=== PATIENT | male | born 1955 | race Caucasian/White ===

== ENCOUNTER → 2021-12-26 | Outpatient (CLI) | payer MEDICARE, BC ==
[2021-12-26 18:26] LABS: % Iron Saturation 25.32 (15.00-50.00); African American GFR (CKD) 102.1 (60.0-200.0); Albumin 4.1 g/dL (3.8-4.9); Albumin/Globulin Ratio 1.05 (1.60-3.17); Anion Gap 9.8 mmol/L (10.00-18.00); Calcium 11.6 mg/dL (8.7-10.3); Carbon Dioxide 24.2 mmol/L (20.0-27.5); Globulin 3.9 g/dL (1.6-3.3); Non-African American GFR(CKD) 88.1 (60.0-200.0); Potassium 4.2 mmol/L (3.5-5.5); Total Bilirubin 0.8 mg/dL (0.30-1.20)
[2021-12-26 18:29] LABS: Alpha Fetoprotein, Tumor Mkr 18.8 ng/mL (0.00-7.90); Ceruloplasmin 25.3 mg/dL (20.0-60.0)
[2021-12-26 19:37] LABS: Basophils # (A) 0.06 X 10*3/uL (0.00-0.10); Basophils % (A) 1.3 %; Eosinophils % (A) 4.4 %; HCT 42.1 % (39.6-50.0); HGB 14.7 g/dL (13.0-17.0); Immature Grans, Automated 0.2 %; Immature Platelet Fraction 20.3 % (1.1-6.1); Lymphocytes # (A) 0.84 X 10*3/uL (0.90-5.00); Lymphocytes % (A) 18.6 %; MCH 34.8 pg (27.0-32.0); MCHC 34.9 g/dL (32.0-37.0); MCV 99.8 fL (80.0-97.0); Mean Platelet Volume 13.6 fL (9.5-12.2); Monocytes # (A) 0.61 X 10*3/uL (0.20-1.00); Monocytes % (A) 13.5 %; NRBC Per 100 WBC 0 /100 WBCS (0.0-0.0); Neutrophils # (A) 2.79 X 10*3/uL (1.80-7.70); Platelet Count 83 X 10*3/uL (140-440); RBC 4.22 X 10*6/uL (4.40-5.60); RBC Morphology NORMAL; RDW 12.7 % (11.5-14.5); WBC 4.51 X 10*3/uL (4.50-10.00)
== END | disposition home or self-care (01) ==
LOC: LABWHC1 13:10
PROVIDERS: ATTEND Internal Medicine Gastroenterology
DX: R74.01 Elevation of levels of liver transaminase levels (principal); Z86.19 Personal history of other infectious and parasitic diseases
CPT/HCPCS: 36415; 80053; 82103; 82105; 82390; 82728; 83540; 83550; 85025; 87522

== ENCOUNTER → 2022-01-24 | Outpatient (CLI) | payer MEDICARE, BC ==
--- NOTE | 2022-01-24 16:00 | MR ---
EXAMINATION TYPE: MR liver wo/w con DATE OF EXAM: 01/24/2022 1:05 PM INDICATION: Patient age:Male; 66 years old; Reason for study: R77.2 ABNORMALITY OF ALPHAFETOPROTEIN; PHH. COMPARISON: None available. TECHNIQUE: Multiplanar multi-sequence imaging of the abdomen was obtained before and after the uneve ntful administration of 9 mL of Gadavist intravenously. FINDINGS: LOWER CHEST: No gross irregularity. ABDOMEN Liver: Noncirrhotic morphology. No intrahepatic biliary duct dilatation. No suspicious focal lesions or abnormal enhancement identified.. Diffuse lower signal on the in phase images. Gallbladder and Bile ducts: Unremarkable. Pancreas: Unremarkable. Spleen: Unremarkable. Adrenal glands: Unremarkable. Kidneys: Unremarkable. Stomach and Bowel: Unremarkable as visualized. Peritoneum: No evidence of pneumoperitoneum, free fluid, or adenopathy. Vasculature: Unremarkable. No aortic aneurysm. Abdominal wall: Unremarkable. Musculoskeletal: The osseous structures appear intact. Scoliotic curvature with multilevel degenerati ve changes. IMPRESSION: 1. Noncirrhotic hepatic morphology without focal hepatic lesion. No abnormal contrast enhancement. 2. Mild hepatic iron deposition.
== END | disposition home or self-care (01) ==
LOC: RADMRIMAIN 12:10
PROVIDERS: ATTEND Internal Medicine Gastroenterology
DX: K76.9 Liver disease, unspecified (principal); R77.2 Abnormality of alphafetoprotein
CPT/HCPCS: 74183; A9585

== ENCOUNTER → 2022-06-02 | Outpatient (CLI) | payer MEDICARE, BC ==
[2022-06-02 21:11] LABS: African American GFR (CKD) 89.2 (60.0-200.0); Albumin 4.3 g/dL (3.8-4.9); Albumin/Globulin Ratio 1.19 (1.60-3.17); Anion Gap 8.3 mmol/L (10.00-18.00); BUN/Creat Ratio 12.2 Ratio (12.00-20.00); Basophils # (A) 0.05 X 10*3/uL (0.00-0.10); Blood Urea Nitrogen 12.2 mg/dL (9.0-27.0); Calcium 11.7 mg/dL (8.7-10.3); Carbon Dioxide 25.7 mmol/L (20.0-27.5); Eosinophils # (A) 0.18 X 10*3/uL (0.04-0.35); Eosinophils % (A) 3.7 %; Globulin 3.6 g/dL (1.6-3.3); HCT 42.5 % (39.6-50.0); HGB 14.8 g/dL (13.0-17.0); Immature Grans, Automated 0.2 %; Lymphocytes % (A) 18.6 %; MCH 33.8 pg (27.0-32.0); MCHC 34.8 g/dL (32.0-37.0); Mean Platelet Volume 13.5 fL (9.5-12.2); Monocytes # (A) 0.54 X 10*3/uL (0.20-1.00); Monocytes % (A) 11.1 %; NRBC Per 100 WBC 0 /100 WBCS (0.0-0.0); Neutrophils # (A) 3.17 X 10*3/uL (1.80-7.70); Neutrophils % (A) 65.4 %; Platelet Count 92 X 10*3/uL (140-440); Potassium 4.4 mmol/L (3.5-5.5); RBC 4.38 X 10*6/uL (4.40-5.60); RBC Morphology NORMAL; RDW 13.2 % (11.5-14.5); Total Bilirubin 0.6 mg/dL (0.30-1.20); Total Protein 7.9 g/dL (6.2-8.2); WBC 4.85 X 10*3/uL (4.50-10.00)
== END | disposition home or self-care (01) ==
LOC: LABWHC1 11:40
PROVIDERS: ATTEND Internal Medicine Gastroenterology
DX: B18.2 Chronic viral hepatitis C (principal)
CPT/HCPCS: 36415; 80053; 85025; 87522

== ENCOUNTER → 2022-11-23 | Outpatient (CLI) | payer BC, MEDICARE ==
--- NOTE | 2022-11-23 16:45 | US ---
EXAMINATION TYPE: US liver DATE OF EXAM: 11/23/2022 COMPARISON: Correlation MRI 01/24/2022 CLINICAL INDICATION: Male, 67 years old with history of B18.2 CHRONIC VIRAL HEPATITIS C; Abnormal lab s. TECHNIQUE: Multiple sonographic images of the right upper quadrant are obtained. FINDINGS: EXAM MEASUREMENTS: Liver Length: 17.9 cm Gallbladder Wall: 0.1 cm CBD: 0.6 cm Right Kidney: 11.6 x 4.7 x 5.2 cm Pancreas: Tail obscured by overlying bowel gas. Visualized portions within normal limits. Liver: Borderline enlarged. No focal lesion identified. Gallbladder: Mildly distended. However, there is no wall thickening or stones visualized. Evidence for sonographic Flor's sign: neg CBD: Borderline caliber Right Kidney: No hydronephrosis or masses seen IMPRESSION: 1. Borderline hepatomegaly at 17.9 cm. No sonographic evidence for hepatoma. 2. Mildly hydropic gallbladder but without any stones, wall thickening, or signs of inflammation. 3. Bile duct borderline in caliber at 6 mm, acceptable given patient's age.
== END | disposition home or self-care (01) ==
LOC: RADUSWWP 09:48
PROVIDERS: ATTEND Internal Medicine Gastroenterology
DX: B18.2 Chronic viral hepatitis C (principal); R16.0 Hepatomegaly, not elsewhere classified; K82.8 Other specified diseases of gallbladder
CPT/HCPCS: 76705

== ENCOUNTER → 2022-11-23 | Outpatient (CLI) | payer MEDICARE ==
[2022-11-23 16:52] LABS: ALT 39 U/L (10-49); AST 38 U/L (14-35); Albumin 4.4 d/dL (3.8-4.9); Albumin/Globulin Ratio 1.29 Ratio (1.60-3.17); Alkaline Phosphatase 70 U/L (41-126); Blood Urea Nitrogen 13.4 mg/dL (9.0-27.0); Calcium 11.9 mg/dL (8.7-10.3); Carbon Dioxide 24.5 mmol/L (21.6-31.8); Chloride 106 mmol/L (96-109); Globulin 3.4 d/dL (1.6-3.3); Glucose 117 mg/dL (70-110); Potassium 4.5 mmol/L (3.5-5.5); Sodium 139 mmol/L (135-145); Total Bilirubin 0.9 mg/dL (0.3-1.2); Total Protein 7.8 d/dL (6.2-8.2)
[2022-11-23 17:07] LABS: Basophils # (A) 0.05 X 10*3/uL (0.00-0.10); Basophils % (A) 1.1 %; Eosinophils # (A) 0.27 X 10*3/uL (0.04-0.35); Eosinophils % (A) 6.2 %; HCT 45.1 % (39.6-50.0); HGB 15.4 d/dL (13.0-17.0); Lymphocytes # (A) 0.72 X 10*3/uL (0.90-5.00); Lymphocytes % (A) 16.4 %; MCHC 34.1 d/dL (32.0-37.0); MCV 96.6 FL (80.0-97.0); Monocytes # (A) 0.55 X 10*3/uL (0.20-1.00); Monocytes % (A) 12.6 %; NRBC Per 100 WBC 0 X 10*3/uL (0.00-0.01); Neutrophils # (A) 2.78 X 10*3/uL (1.80-7.70); Neutrophils % (A) 63.5 %; Platelet Count 106 X 10*3/uL (140-440); RBC 4.67 X 10*6/uL (4.40-5.60); RDW 12.7 % (11.5-14.5); WBC 4.38 X 10*3/uL (4.50-10.00)
== END | disposition home or self-care (01) ==
LOC: LABWHC1 09:52
PROVIDERS: ATTEND Internal Medicine Gastroenterology
DX: B18.2 Chronic viral hepatitis C (principal)
CPT/HCPCS: 36415; 80053; 82105; 85025; 87522

== ENCOUNTER → 2023-05-17 | Outpatient (CLI) | payer MEDICARE ==
--- NOTE | 2023-05-17 10:43 | US ---
EXAMINATION TYPE: US liver DATE OF EXAM: 05/17/2023 COMPARISON: NONE CLINICAL INDICATION: Male, 68 years old with history of B18.2 CHRONIC VIRAL HEP. c us; Hep C. No othe r pain or symptoms. TECHNIQUE: Multiple sonographic images of the right upper quadrant are obtained. FINDINGS: EXAM MEASUREMENTS: Liver Length: 17.5 cm Gallbladder Wall: 0.2 cm CBD: 0.4 cm Right Kidney: 11.4 x 3.6 x 5.4 cm FACULTY RESEARCH ASSISTANT NOTES:Slightly limited due to bowel gas Pancreas: Visualized portions WNL. Tail obscured by gas Liver: Mild hepatomegaly. Homogenous echotexture. Gallbladder: No stones seen. Slightly hydropic. Evidence for sonographic Flor's sign: No CBD: wnl Right Kidney: No hydronephrosis or masses seen as best visualized IMPRESSION: 1. Mild hepatomegaly with mild fatty infiltration. 2. No discrete masses are identified within the liver.
[2023-05-17 15:21] LABS: Basophils # (A) 0.06 X 10*3/uL (0.00-0.10); Basophils % (A) 1.2 %; Eosinophils # (A) 0.21 X 10*3/uL (0.04-0.35); Eosinophils % (A) 4.2 %; HCT 45.8 % (39.6-50.0); HGB 15.4 g/dL (13.0-17.0); Lymphocytes # (A) 1.01 X 10*3/uL (0.90-5.00); MCH 32.2 pg (27.0-32.0); MCHC 33.6 g/dL (32.0-37.0); MCV 95.8 FL (80.0-97.0); Mean Platelet Volume 13.7 FL (9.5-12.2); Monocytes # (A) 0.48 X 10*3/uL (0.20-1.00); Monocytes % (A) 9.5 %; NRBC Per 100 WBC 0 X 10*3/uL (0.00-0.01); Neutrophils # (A) 3.28 X 10*3/uL (1.80-7.70); Neutrophils % (A) 64.9 %; Platelet Count 101 X 10*3/uL (140-440); RBC 4.78 X 10*6/uL (4.40-5.60); RDW 13.4 % (11.5-14.5); WBC 5.05 X 10*3/uL (4.50-10.00)
[2023-05-17 15:37] LABS: ALT 37 U/L (10-49); AST 31 U/L (14-35); Albumin 4.4 g/dL (3.8-4.9); Albumin/Globulin Ratio 1.33 Ratio (1.60-3.17); Alkaline Phosphatase 77 U/L (41-126); Blood Urea Nitrogen 14.6 mg/dL (9.0-27.0); Calcium 11.8 mg/dL (8.7-10.3); Carbon Dioxide 26.9 mmol/L (21.6-31.8); Chloride 105 mmol/L (96-109); Globulin 3.3 g/dL (1.6-3.3); Glucose 119 mg/dL (70-110); Potassium 4.2 mmol/L (3.5-5.5); Sodium 141 mmol/L (135-145); Total Bilirubin 0.9 mg/dL (0.3-1.2); Total Protein 7.7 g/dL (6.2-8.2)
== END | disposition home or self-care (01) ==
LOC: RADUSWWP 09:34
PROVIDERS: ATTEND Internal Medicine Gastroenterology
DX: K76.89 Other specified diseases of liver (principal); R16.0 Hepatomegaly, not elsewhere classified; B18.2 Chronic viral hepatitis C
CPT/HCPCS: 76705; 80053; 82105; 85025